=== PATIENT | female | born 1945 | race African-American/Black ===

== ENCOUNTER 2018-08-28 07:23 | Inpatient (IN) | payer OTHER, MEDICAID ==
[~2018-08-28] VITALS: Ht 170.2 cm; Wt 141.5 kg
[2018-08-28] MEDS ORDERED: FUROSEMIDE 40MG/4ML VIAL IV ONE (07:30)
[2018-08-28 08:11] LABS: BASOPHILS % 0.5 % (0.0-2.0); EOSINOPHILS % 2.6 % (0.0-5.0); HEMATOCRIT. 32.1 % (36.0-48.0); HEMOGLOBIN. 9.7 g/dL (12.0-16.0); LYMPHOCYTES % 8.1 % (20.0-50.0); MEAN CORPUSCULAR VOLUME 89.2 fL (81.0-99.0); MONOCYTES % 5.8 % (2.0-8.0); PLATELET 207 x1000/uL (130-400); RED CELL DISTRIBUTION WIDTH 17.8 % (11.6-14.6)
[2018-08-28 08:19] LABS: CHLORIDE 107 mEq/L (98-107)
[2018-08-28 09:00] LABS: CLARITY URINE CLOUDY (CLEAR); COLOR URINE YELLOW (YELLOW); KETONES URINE NEGATIVE (NEGATIVE); LEUKOCYTE ESTERASE URINE TRACE (NEGATIVE); NITRITE URINE NEGATIVE (NEGATIVE); OCCULT BLOOD URINE NEGATIVE (NEGATIVE); PROTEIN URINE TRACE (NEGATIVE); SPECIFIC GRAVITY URINE 1.012 (1.005-1.030); UROBILINOGEN URINE 0.2 E.U./dL (0.2-1.0)
[2018-08-28] MEDS ORDERED: LEVOFLOXACIN 750MG PREMIX 150 ML IV ONE (09:00)
[2018-08-28 09:14] LABS: BG BASE EXCESS 1.1 mmol/L (-2.0-2.0); BG BILEVEL POS AIRWAY PRESSURE 15/5; BG CARBOXYHEMOGLOBIN 0.9 % (0.5-1.5); BG FRACTION INSPIRED OXYGEN 60; BG HCO3 ACT 30.4 mmol/L (22.0-26.0); BG METHEMOGLOBIN 0.4 % (0.0-1.5); BG OXYGEN SATURATION 93.9 % (92.0-98.5); BG OXYHEMOGLOBIN 92.7 % (94.0-97.0); BG PCO2 76.4 mmHg (35.0-45.0); BG PH 7.217 (7.350-7.450); BG PO2 84.3 mmHg (75.0-100.0); BG SAMPLE SITE RIGHT RADIAL; BG VENT MODE MASK - BIPAP; BG VENT RATE 18 set
[2018-08-28] MEDS ORDERED: LEVOFLOXACIN 500MG PREMIX 100 ML IV SCH (09:30)
[2018-08-28] MEDS ORDERED: FUROSEMIDE 40MG/4ML VIAL IVP SCH (09:30)
[2018-08-28] MEDS ORDERED: IPRATROPIUM/ALBUTEROL 0.5-3(2.5)MG/3ML NEB HHN PRN (09:30)
[2018-08-28] MEDS ORDERED: CLONIDINE 0.1MG TABLET PO PRN (09:30)
[2018-08-28 10:57] LABS: CREATINE KINASE 52 IU/L (26-192); CREATINE KINASE MB FRACTION < 1.0 ng/mL (0.5-3.6); HDL CHOLESTEROL 34 mg/dL (40-59); LDL CHOLESTEROL 39 mg/dL (5-100)
[2018-08-28] MEDS ORDERED: CARV25TA47 PO (11:13)
[2018-08-28] MEDS ORDERED: NIFE90TA34 PO (11:13)
[2018-08-28] MEDS ORDERED: GLIP10TA10 PO (11:13)
[2018-08-28] MEDS ORDERED: SODI650T PO (11:13)
[2018-08-28] MEDS ORDERED: LISI10TA5 PO (11:13)
[2018-08-28] MEDS ORDERED: ASPI-1160 PO (11:13)
[2018-08-28] MEDS ORDERED: HYDR100T26 PO (11:13)
[2018-08-28] MEDS ORDERED: ALBU18HF2 IH (11:13)
[2018-08-28] MEDS ORDERED: ATOR-2 PO (11:13)
[2018-08-28] MEDS ORDERED: FLUT1DIS3 INH (11:13)
[2018-08-28] MEDS ORDERED: FURO20TA4 PO (11:13)
[2018-08-28] MEDS ORDERED: CHOL100036 PO (11:13)
[2018-08-28 11:53] LABS: BG BILEVEL POS AIRWAY PRESSURE 15/5; BG CARBOXYHEMOGLOBIN 0.5 % (0.5-1.5); BG DEOXYHEMOGLOBIN 4.5 % (0.0-5.0); BG FRACTION INSPIRED OXYGEN 60; BG HCO3 ACT 28.3 mmol/L (22.0-26.0); BG METHEMOGLOBIN 0.2 % (0.0-1.5); BG OXYGEN SATURATION 95.5 % (92.0-98.5); BG OXYHEMOGLOBIN 94.8 % (94.0-97.0); BG PCO2 67.5 mmHg (35.0-45.0); BG PH 7.241 (7.350-7.450); BG PO2 90.1 mmHg (75.0-100.0); BG SAMPLE SITE RIGHT RADIAL; BG TOTAL HEMOGLOBIN 10.4 g/dL (12.0-18.0); BG VENT MODE MASK - BIPAP
[2018-08-28 13:38] VITALS: BP 148/78
[2018-08-28 14:00] VITALS: BP 149/68
[2018-08-28] MEDS ORDERED: DEXTROSE 50% WATER 50ML SYRINGE IV PRN (15:30)
[2018-08-28 16:00] VITALS: BP 149/69
[2018-08-28 16:16] LABS: *AMPHETAMINES SCREEN URINE NEGATIVE (NEGATIVE); *BARBITURATES SCREEN URINE NEGATIVE (NEGATIVE); *BENZODIAZEPINES SCREEN URINE NEGATIVE (NEGATIVE); *COCAINE SCREEN URINE NEGATIVE (NEGATIVE); CANNABINOID URINE SCREEN NEGATIVE (NEGATIVE); METHADONE URINE SCREEN NEGATIVE (NEGATIVE); OPIATES URINE SCREEN NEGATIVE (NEGATIVE); PHENCYCLIDINE URINE SCREEN NEGATIVE (NEGATIVE)
[2018-08-28] MEDS: IPRATROPIUM/ALBUTEROL 0.5-3(2.5)MG/3ML NEB HHN SCH ×2 (16:16→20:03)
[2018-08-28] MEDS: BLOOD SUGAR DIAGNOSTIC STRIP TEST SCH ×2 (16:37→21:25)
[2018-08-28] MEDS: FUROSEMIDE 40MG/4ML VIAL IVP SCH (16:42)
[2018-08-28] MEDS ORDERED: ACETAMINOPHEN 325MG TABLET PO PRN (16:45)
[2018-08-28] MEDS: INSULIN LISPRO 100 UNITS/ML SUBCUT SCH ×2 (17:20→21:00)
[2018-08-28 17:21] LABS: TOTAL IRON BINDING CAPACITY 249 ug/dL (250-450)
[2018-08-28 18:00] VITALS: BP 158/68
[2018-08-28 18:40] LABS: BG BILEVEL POS AIRWAY PRESSURE 15/5; BG CARBOXYHEMOGLOBIN 0.7 % (0.5-1.5); BG DEOXYHEMOGLOBIN 4.9 % (0.0-5.0); BG FRACTION INSPIRED OXYGEN 60; BG HCO3 ACT 34.9 mmol/L (22.0-26.0); BG METHEMOGLOBIN 0.5 % (0.0-1.5); BG OXYHEMOGLOBIN 93.9 % (94.0-97.0); BG PCO2 69.3 mmHg (35.0-45.0); BG PO2 79.6 mmHg (75.0-100.0); BG SAMPLE SITE RIGHT RADIAL; BG TOTAL HEMOGLOBIN 10.8 g/dL (12.0-18.0); BG VENT MODE MASK - BIPAP; BG VENT RATE 20 set
[2018-08-28] MEDS: BUDESONIDE 0.5MG/2ML NEB HHN SCH (20:03)
[2018-08-28 20:08] VITALS: BP 148/66
[2018-08-28] MEDS: AMLODIPINE 5MG TABLET PO SCH (21:25)
[2018-08-28 22:01] VITALS: BP 144/66
[2018-08-29] VITALS (11 sets, daily range): BP systolic 134–193; BP diastolic 53–86
[2018-08-29] MEDS: IPRATROPIUM/ALBUTEROL 0.5-3(2.5)MG/3ML NEB HHN SCH ×4 (00:06→20:49)
[2018-08-29] MEDS: BLOOD SUGAR DIAGNOSTIC STRIP TEST SCH ×4 (06:21→20:05)
[2018-08-29] MEDS: INSULIN LISPRO 100 UNITS/ML SUBCUT SCH ×4 (06:21→20:24)
[2018-08-29 07:28] LABS: BASOPHILS % 0.4 % (0.0-2.0); EOSINOPHILS % 2.3 % (0.0-5.0); HEMATOCRIT. 27.1 % (36.0-48.0); HEMOGLOBIN. 8.5 g/dL (12.0-16.0); LYMPHOCYTES % 10.5 % (20.0-50.0); MEAN CORPUSCULAR HEMOGLOBIN 27.9 pg (28.0-32.0); MEAN CORPUSCULAR VOLUME 88.7 fL (81.0-99.0); MEAN PLATELET VOLUME 8.4 fl (7.4-10.4); MONOCYTES % 9.2 % (2.0-8.0); NEUTROPHILS % 77.6 % (40.0-76.0); PLATELET 135 x1000/uL (130-400); RED BLOOD CELL COUNT 3.06 mill/uL (4.2-5.4); RED CELL DISTRIBUTION WIDTH 17.7 % (11.6-14.6)
[2018-08-29 07:34] LABS: BG BASE EXCESS 5.3 mmol/L (-2.0-2.0); BG BILEVEL POS AIRWAY PRESSURE 15/5; BG CARBOXYHEMOGLOBIN 0.6 % (0.5-1.5); BG DEOXYHEMOGLOBIN 8.6 % (0.0-5.0); BG HCO3 ACT 32.5 mmol/L (22.0-26.0); BG METHEMOGLOBIN 0.1 % (0.0-1.5); BG OXYGEN SATURATION 91.3 % (92.0-98.5); BG OXYHEMOGLOBIN 90.7 % (94.0-97.0); BG PCO2 62.7 mmHg (35.0-45.0); BG PH 7.332 (7.350-7.450); BG PO2 63.7 mmHg (75.0-100.0); BG SAMPLE SITE RIGHT RADIAL; BG TOTAL HEMOGLOBIN 10.1 g/dL (12.0-18.0); BG VENT MODE MASK - BIPAP; BG VENT RATE 20 set
[2018-08-29] MEDS: BUDESONIDE 0.5MG/2ML NEB HHN SCH ×2 (07:40→20:50)
[2018-08-29] MEDS: LEVOFLOXACIN 250MG PREMIX 50 ML IV SCH (09:46)
[2018-08-29] MEDS: AMLODIPINE 5MG TABLET PO SCH ×2 (09:47→20:44)
[2018-08-29] MEDS: FUROSEMIDE 40MG/4ML VIAL IVP SCH ×2 (09:48→17:47)
[2018-08-29] MEDS: NYSTATIN POWDER 15GM TOP SCH ×2 (12:06→17:47)
[2018-08-29] MEDS: METHYLPREDNISOLONE SOD SUCC 40 MG/ML VIAL IV SCH ×2 (14:19→20:23)
[2018-08-29] MEDS ORDERED: LIDOCAINE HCL/PF 1% 2ML VIAL ONE (14:40)
[2018-08-29] MEDS: HYDRALAZINE HCL 25MG TABLET PO SCH (22:42)
[2018-08-30] VITALS (8 sets, daily range): BP systolic 130–171; BP diastolic 41–72
[2018-08-30] MEDS: IPRATROPIUM/ALBUTEROL 0.5-3(2.5)MG/3ML NEB HHN SCH ×6 (00:23→20:56)
[2018-08-30] MEDS: HYDRALAZINE HCL 25MG TABLET PO SCH (06:00)
[2018-08-30] MEDS: BLOOD SUGAR DIAGNOSTIC STRIP TEST SCH ×4 (06:50→20:47)
[2018-08-30] MEDS: FUROSEMIDE 40MG/4ML VIAL IVP SCH ×2 (06:56→18:10)
[2018-08-30] MEDS: INSULIN LISPRO 100 UNITS/ML SUBCUT SCH ×4 (07:20→21:23)
[2018-08-30] MEDS: BUDESONIDE 0.5MG/2ML NEB HHN SCH ×2 (07:50→20:56)
[2018-08-30] MEDS: GLIPIZIDE 10MG TABLET PO SCH ×2 (08:40→18:10)
[2018-08-30] MEDS: METHYLPREDNISOLONE SOD SUCC 40 MG/ML VIAL IV SCH ×2 (09:00→20:46)
[2018-08-30] MEDS: CHOLECALCIFEROL (D3) 1000 UNIT TABLET PO SCH (09:00)
[2018-08-30] MEDS: CARVEDILOL 25MG TABLET PO SCH ×2 (09:00→20:47)
[2018-08-30] MEDS ORDERED: MEDICATION NOT ON FORMULARY EA (Hydralazine Hcl 100 MG) PO SCH (09:00)
[2018-08-30] MEDS ORDERED: MEDICATION NOT ON FORMULARY EA (Atorvastatin Calcium 80 TAB) PO SCH (09:00)
[2018-08-30] MEDS ORDERED: CHOLECALCIFEROL 1000 UNIT PO SCH (09:00)
[2018-08-30] MEDS: HYDRALAZINE HCL 100MG TABLET PO SCH ×3 (09:00→21:22)
[2018-08-30] MEDS: NYSTATIN POWDER 15GM TOP SCH ×3 (09:00→17:00)
[2018-08-30] MEDS: AMLODIPINE 5MG TABLET PO SCH ×2 (09:00→20:47)
[2018-08-30] MEDS: ENOXAPARIN 40MG/0.4ML SYR SUBCUT SCH (09:30)
[2018-08-30] MEDS: LEVOFLOXACIN 250MG PREMIX 50 ML IV SCH (10:00)
[2018-08-30 10:57] LABS: BG BASE EXCESS 5.3 mmol/L (-2.0-2.0); BG BILEVEL POS AIRWAY PRESSURE 15/5; BG CARBOXYHEMOGLOBIN 0.4 % (0.5-1.5); BG DEOXYHEMOGLOBIN 5.6 % (0.0-5.0); BG FRACTION INSPIRED OXYGEN 60; BG HCO3 ACT 30.9 mmol/L (22.0-26.0); BG METHEMOGLOBIN 0.1 % (0.0-1.5); BG OXYGEN SATURATION 94.4 % (92.0-98.5); BG OXYHEMOGLOBIN 93.9 % (94.0-97.0); BG PCO2 51.1 mmHg (35.0-45.0); BG PO2 74.4 mmHg (75.0-100.0); BG SAMPLE SITE LEFT BRACHIAL; BG TOTAL HEMOGLOBIN 10.2 g/dL (12.0-18.0); BG VENT MODE MASK - BIPAP; BG VENT RATE 20 set
[2018-08-30] MEDS ORDERED: HALOPERIDOL LACTATE 5MG/ML VIAL IM PRN (14:00)
[2018-08-30 16:15] LABS: BASOPHILS % 0.1 % (0.0-2.0); EOSINOPHILS % 0.1 % (0.0-5.0); HEMATOCRIT. 27.5 % (36.0-48.0); HEMOGLOBIN. 8.7 g/dL (12.0-16.0); LYMPHOCYTES % 8.1 % (20.0-50.0); MEAN CORPUSCULAR HEMOGLOBIN 27.5 pg (28.0-32.0); MEAN CORPUSCULAR VOLUME 86.4 fL (81.0-99.0); MEAN PLATELET VOLUME 8.8 fl (7.4-10.4); MONOCYTES % 9.2 % (2.0-8.0); NEUTROPHILS % 82.5 % (40.0-76.0); PLATELET 137 x1000/uL (130-400); RED BLOOD CELL COUNT 3.18 mill/uL (4.2-5.4); RED CELL DISTRIBUTION WIDTH 17.4 % (11.6-14.6)
[2018-08-30 16:35] LABS: T4 FREE 1.47 ng/dL (0.76-1.46)
[2018-08-30 17:00] LABS: FOLIC ACID (FOLATE) SERUM 7.5 ng/mL (>5.38)
[2018-08-30] MEDS: ATORVASTATIN CALCIUM 40MG TABLET PO SCH (20:47)
[2018-08-31] VITALS (13 sets, daily range): BP systolic 133–175; BP diastolic 50–80
[2018-08-31] MEDS: IPRATROPIUM/ALBUTEROL 0.5-3(2.5)MG/3ML NEB HHN SCH ×5 (02:11→20:58)
[2018-08-31 06:16] LABS: HEMATOCRIT. 26.6 % (36.0-48.0); HEMOGLOBIN. 8.4 g/dL (12.0-16.0); MEAN CORPUSCULAR HEMOGLOBIN 27.2 pg (28.0-32.0); MEAN CORPUSCULAR VOLUME 86.8 fL (81.0-99.0); MEAN PLATELET VOLUME 9.3 fl (7.4-10.4); PLATELET 122 x1000/uL (130-400); RED BLOOD CELL COUNT 3.07 mill/uL (4.2-5.4); RED CELL DISTRIBUTION WIDTH 17.4 % (11.6-14.6)
[2018-08-31] MEDS: GLIPIZIDE 10MG TABLET PO SCH ×2 (06:32→17:36)
[2018-08-31] MEDS: FUROSEMIDE 40MG/4ML VIAL IVP SCH (06:32)
[2018-08-31] MEDS: BLOOD SUGAR DIAGNOSTIC STRIP TEST SCH ×4 (06:32→21:00)
[2018-08-31] MEDS: HYDRALAZINE HCL 100MG TABLET PO SCH ×3 (06:32→21:44)
[2018-08-31] MEDS: BUDESONIDE 0.5MG/2ML NEB HHN SCH ×2 (07:16→20:58)
[2018-08-31] MEDS: INSULIN LISPRO 100 UNITS/ML SUBCUT SCH ×4 (07:58→21:57)
[2018-08-31] MEDS: NYSTATIN POWDER 15GM TOP SCH ×3 (08:07→17:37)
[2018-08-31] MEDS: METHYLPREDNISOLONE SOD SUCC 40 MG/ML VIAL IV SCH (08:07)
[2018-08-31] MEDS: CARVEDILOL 25MG TABLET PO SCH ×2 (08:08→21:44)
[2018-08-31] MEDS: CHOLECALCIFEROL (D3) 1000 UNIT TABLET PO SCH (08:08)
[2018-08-31] MEDS: ENOXAPARIN 40MG/0.4ML SYR SUBCUT SCH (08:08)
[2018-08-31] MEDS: AMLODIPINE 5MG TABLET PO SCH ×2 (08:08→21:43)
[2018-08-31] MEDS ORDERED: METHYLPREDNISOLONE SOD SUCC 40 MG/ML VIAL IV SCH ×2 (09:00→11:00)
[2018-08-31 09:33] LABS: PLATELET ESTIMATE SLIGHTLY DECREASED
[2018-08-31] MEDS: LEVOFLOXACIN 250MG PREMIX 50 ML IV SCH (10:19)
[2018-08-31] MEDS: ATORVASTATIN CALCIUM 40MG TABLET PO SCH (21:41)
[2018-09-01] VITALS (17 sets, daily range): BP systolic 77–192; BP diastolic 41–88
[2018-09-01] MEDS: IPRATROPIUM/ALBUTEROL 0.5-3(2.5)MG/3ML NEB HHN SCH ×5 (00:45→17:06)
[2018-09-01 06:50] LABS: HEMATOCRIT. 27.3 % (36.0-48.0); HEMOGLOBIN. 8.8 g/dL (12.0-16.0); MEAN CORPUSCULAR HEMOGLOBIN 27.7 pg (28.0-32.0); MEAN CORPUSCULAR VOLUME 86.1 fL (81.0-99.0); MEAN PLATELET VOLUME 9.4 fl (7.4-10.4); PLATELET 136 x1000/uL (130-400); RED BLOOD CELL COUNT 3.17 mill/uL (4.2-5.4); RED CELL DISTRIBUTION WIDTH 17.7 % (11.6-14.6)
[2018-09-01] MEDS: BLOOD SUGAR DIAGNOSTIC STRIP TEST SCH ×4 (06:50→21:17)
[2018-09-01] MEDS: HYDRALAZINE HCL 100MG TABLET PO SCH ×3 (06:58→21:17)
[2018-09-01] MEDS: GLIPIZIDE 10MG TABLET PO SCH ×2 (06:58→17:40)
[2018-09-01 07:07] LABS: PHOSPHORUS 3.5 mg/dL (2.5-4.9)
[2018-09-01] MEDS: INSULIN LISPRO 100 UNITS/ML SUBCUT SCH ×4 (08:02→21:14)
[2018-09-01] MEDS: CARVEDILOL 25MG TABLET PO SCH ×2 (08:04→21:16)
[2018-09-01] MEDS: ENOXAPARIN 40MG/0.4ML SYR SUBCUT SCH (08:04)
[2018-09-01] MEDS: CHOLECALCIFEROL (D3) 1000 UNIT TABLET PO SCH (08:04)
[2018-09-01] MEDS: NYSTATIN POWDER 15GM TOP SCH ×3 (08:05→17:40)
[2018-09-01] MEDS: AMLODIPINE 5MG TABLET PO SCH ×2 (08:05→21:15)
[2018-09-01] MEDS ORDERED: FUROSEMIDE 40MG/4ML VIAL IVP SCH (09:00)
[2018-09-01] MEDS ORDERED: METHYLPREDNISOLONE SOD SUCC 40 MG/ML VIAL IV SCH (09:00)
[2018-09-01 09:16] LABS: PLATELET ESTIMATE NORMAL
[2018-09-01] MEDS ORDERED: LEVOFLOXACIN 250MG TABLET PO SCH (10:00)
[2018-09-01] MEDS ORDERED: INSULIN GLARGINE UD 100 UNITS/ML SYR SUBCUT SCH (11:30)
[2018-09-01] MEDS: ATORVASTATIN CALCIUM 40MG TABLET PO SCH (21:15)
== END 2018-09-01 22:18 | disposition short-term general hospital (02) | DRG 291 ==
LOC: ER 07:55 → EDBEDREQTM 09:26 → EDBEDREQ 09:26 → EDBEDREQSVC 09:27 → 3WST 09:47 → EDBEDREQSVC 09:47 → ENRESERV 12:21
PROVIDERS: ADMIT Internal Medicine; ATTEND Internal Medicine
PROC: 5A09457 Assistance with Respiratory Ventilation, 24-96 Consecutive Hours, Continuous Positive Airway Pressure (ICD-10-PCS; 2018-08-28)
PROC: 05H533Z Insertion of Infusion Device into Right Subclavian Vein, Percutaneous Approach (ICD-10-PCS; principal; 2018-08-30)
PROC: B546ZZA Ultrasonography of Right Subclavian Vein, Guidance (ICD-10-PCS; 2018-08-30)
PROC: 5A09357 Assistance with Respiratory Ventilation, Less than 24 Consecutive Hours, Continuous Positive Airway Pressure (ICD-10-PCS; 2018-09-01)
DX: I13.0 Hypertensive heart and chronic kidney disease with heart failure and stage 1 through stage 4 chronic kidney disease, or unspecified chronic kidney disease (principal); J18.1 Lobar pneumonia, unspecified organism; J96.01 Acute respiratory failure with hypoxia; J96.02 Acute respiratory failure with hypercapnia; I50.33 Acute on chronic diastolic (congestive) heart failure; N17.9 Acute kidney failure, unspecified; J44.1 Chronic obstructive pulmonary disease with (acute) exacerbation; E44.0 Moderate protein-calorie malnutrition; E87.1 Hypo-osmolality and hyponatremia; E87.0 Hyperosmolality and hypernatremia; E87.2 Acidosis; J44.0 Chronic obstructive pulmonary disease with (acute) lower respiratory infection; Z68.42 Body mass index [BMI] 45.0-49.9, adult; N18.4 Chronic kidney disease, stage 4 (severe); R41.0 Disorientation, unspecified; E11.22 Type 2 diabetes mellitus with diabetic chronic kidney disease; E66.01 Morbid (severe) obesity due to excess calories; D64.9 Anemia, unspecified; Z79.82 Long term (current) use of aspirin; Z79.84 Long term (current) use of oral hypoglycemic drugs; Z79.899 Other long term (current) drug therapy; Z87.891 Personal history of nicotine dependence; Z99.81 Dependence on supplemental oxygen
CPT/HCPCS: 36415; 36569; 36600; 71045; 76770; 76937; 78582; 80048; 80061; 80305; 82270; 82375; 82550; 82553; 82607; 82728; 82746; 82805; 82962; 83036; 83520; 83540; 83550; 83735; 83880; 84100; 84134; 84145; 84439; 84443; 84481; 84484; 87804; 93005; 93306; 93970; 94640; 94660; 96365; 96366; 96375; 97162; 99291; A9558; C1725; C1893; J1650; J1815; J1940; J1956; J2920; J3490; J7040; J7620; J7626; A4315

== ENCOUNTER 2018-09-14 00:12 | Emergency (ER) | payer OTHER, MEDICAID ==
[~2018-09-14] VITALS: Ht 172.7 cm; Wt 89.0 kg
[~2018-09-14 00:12] MED LIST: ALBU18HF2 IH; ASPI-1160 PO; ATOR-2 PO; CARV25TA47 PO; CHOL100036 PO; FLUT1DIS3 INH; FURO20TA4 PO; GLIP10TA10 PO; HYDR100T26 PO; LISI10TA5 PO; NIFE90TA34 PO; SODI650T PO
[2018-09-14 00:16] VITALS: BP 0/0
[2018-09-14] MEDS ORDERED: PROPOFOL 10MG/ML 100ML 100 ML IV ONE (00:29)
[2018-09-14] MEDS ORDERED: SODIUM CHLORIDE 0.9% 1000ML BAG (SEPSIS BOLUS) IV ONE (00:30)
[2018-09-14] MEDS ORDERED: PROPOFOL 10MG/ML 100ML 100 ML IV SCH (00:30)
[2018-09-14] MEDS ORDERED: VANCOMYCIN 1 G PREMIX 200 ML IV SCH (00:30)
[2018-09-14] MEDS ORDERED: PIPERACILLIN/TAZ 3.375G PREMIX 50 ML IV ONE (00:30)
[2018-09-14] MEDS ORDERED: NOREPINEPHRINE 4MG/250ML PMX 250 ML IV ONE (00:50)
[2018-09-14 01:07] LABS: BASOPHILS % 0.5 % (0.0-2.0); EOSINOPHILS % 1.6 % (0.0-5.0); HEMATOCRIT. 30.1 % (36.0-48.0); LYMPHOCYTES % 14.6 % (20.0-50.0); MEAN CORPUSCULAR HEMOGLOBIN 27.3 pg (28.0-32.0); MEAN CORPUSCULAR VOLUME 90.9 fL (81.0-99.0); MEAN PLATELET VOLUME 9.4 fl (7.4-10.4); MONOCYTES % 4.2 % (2.0-8.0); NEUTROPHILS % 79.1 % (40.0-76.0); PLATELET 105 x1000/uL (130-400); RED BLOOD CELL COUNT 3.31 mill/uL (4.2-5.4); RED CELL DISTRIBUTION WIDTH 19.1 % (11.6-14.6)
[2018-09-14 01:14] LABS: CHLORIDE 115 mEq/L (98-107)
[2018-09-14 01:17] LABS: INR 1.1; PARTIAL THROMBOPLASTIN TIME 25.8 sec (23.4-31.0)
[2018-09-14 01:18] LABS: ETHANOL BLOOD < 10 mg/dL
[2018-09-14] MEDS ORDERED: EPINEPHRINE 0.1MG/ML (1:10,000) 10ML SYR ONE ×5 (01:28→12:51)
[2018-09-14] MEDS ORDERED: SODIUM BICARBONATE 8.4% 1 MEQ/ML 50ML SYR IV ONE (01:33)
[2018-09-14] MEDS ORDERED: DOPAMINE 400MG PREMIX 250 ML IV ONE (01:45)
[2018-09-14] MEDS ORDERED: ATROPINE SULFATE 1MG/10ML SYR ONE (12:51)
[2018-09-14] MEDS ORDERED: SODIUM BICARBONATE 7.5% 0.9 MEQ/ML 50ML SYR IV ONE (12:51)
[2018-09-14] MEDS ORDERED: CALCIUM CHLORIDE 1GM/10ML SYR IV ONE (12:51)
[2018-09-14] MEDS ORDERED: ETOMIDATE 2MG/ML 10ML VIAL IV ONE (13:48)
[2018-09-14] MEDS ORDERED: SUCCINYLCHOLINE CHLORIDE 200MG/10ML IV ONE (13:48)
== END 2018-09-14 02:51 | disposition expired ==
LOC: ER 00:12 → EDBEDREQTM 02:35 → EDBEDREQ 02:35 → CANRESERV 02:48 → ENRESERV 02:48 → ER 02:51 → CANBEDREQ 03:08
DX: J96.00 Acute respiratory failure, unspecified whether with hypoxia or hypercapnia (principal); I46.9 Cardiac arrest, cause unspecified; N28.9 Disorder of kidney and ureter, unspecified; I11.0 Hypertensive heart disease with heart failure; I50.9 Heart failure, unspecified; E11.9 Type 2 diabetes mellitus without complications; Z79.82 Long term (current) use of aspirin; Z79.899 Other long term (current) drug therapy
CPT/HCPCS: 31500; 36415; 36556; 36680; 71045; 80053; 82962; 83605; 83880; 84145; 84484; 85025; 85610; 85730; 86850; 86900; 86901; 87040; 92950; 93005; 94002; 94640; 94660; 99291; G0482; J0330; J0461; J1265; J2704; J3490; J7030; A4315